=== PATIENT | female | born 1950 | race Caucasian/White ===

== ENCOUNTER → 2018-09-16 | Outpatient (CLI) | payer OTHER | LOC: CAT 07:42 | DX: Z13.6 Encounter for screening for cardiovascular disorders (principal); E78.00 Pure hypercholesterolemia, unspecified; I25.10 Atherosclerotic heart disease of native coronary artery without angina pectoris ==

== ENCOUNTER → 2018-10-03 | Outpatient (CLI) | payer OTHER ==
--- NOTE | 2018-10-03 10:31 | 2DMMODE ---
[facility] [place] [address] 2 D/M-MODE ECHOCARDIOGRAM Name: NOEMI KRISHNAN Room #: [facility]#: [id number] Admission: 10/03/18 Attend Phys: Oliverio Biswas MD Discharge: Date of : 46 Date of Service: 10/03/18 1031 Report #: [id number] THIS REPORT FOR: //name// APPROVED REPORT Study performed: 10/03/2018 09:40:17 EXAM: Comprehensive 2D, Doppler, and color-flow Echocardiogram Patient Location: Out-Patient Room #: Echo lab 1 Status: routine BSA: 1.65 HR: 77 bpm BP: 112/72 mmHg Rhythm: NSR Other Information Study Quality: Good Indications Dyspnea Hypertension/HDD 2D Dimensions RVDd: 30.67 mm IVSd: 10.01 (7-11mm) LVOT Diam: 18.38 (18-24mm) LVDd: 33.87 mm PWd: 10.20 (7-11mm) Ascending Ao: 25.90 (22-36mm) LVDs: 24.25 (25-40mm) Aortic Root: 29.30 mm IVC: 10.00 mm Volumes Left Atrial Volume (Systole) Single Plane 4CH: 45.66 mL Single Plane 2CH: 48.89 mL LA ESV Index: 33.00 mL/m2 Aortic Valve AoV Peak Judah.: 1.24 m/s AO Peak Gr.: 6.18 mmHg LVOT Max P.47 mmHg LVOT Max V: 1.17 m/s LUIS Vmax: 2.49 cm2 Mitral Valve E/A Ratio: 0.8 MV Decel. Time: 194.06 ms [facility] [place] [address] [place] [address] 2 D/M-MODE ECHOCARDIOGRAM Name: NOEMI KRISHNAN Room #: [facility]#: [id number] Admission: 10/03/18 Attend Phys: Oliverio Biswas MD Discharge: Date of : 46 Date of Service: 10/03/18 1031 Report #: [id number] MV E Max Judah.: 0.69 m/s MV A Judah.: 0.91 m/s MV PHT: 56.28 ms IVRT: 110.73 ms Pulmonary Valve PV Peak Judah.: 0.82 m/s PV Peak Gr.: 2.69 mmHg Pulmonary Vein P Vein S: 0.62 m/s P Vein A: 0.29 m/s P Vein D: 0.40 m/s P Vein A Dur.: 110.7 msec P Vein S/D Ratio: 1.55 Tricuspid Valve TR Peak Jduah.: 2.51 m/s TR Peak Gr.: 25.16 mmHg PA Pressure: 30.00 mmHg Left Ventricle The left ventricle is normal size. There is normal LV segmental wall motion. There is normal left ventricular wall thickness. The left ventricular systolic function is normal. The left ventricular ejection fraction is within the normal range. LVEF is 60-65%. Grade I - abnormal relaxation pattern. Right Ventricle The right ventricle is normal size. The right ventricular systolic function is normal. Atria Left atrium is at the upper limits of normal. The right atrium size is normal. Aortic Valve The aortic valve is normal in structure. No aortic regurgitation is present. There is no aortic valvular stenosis. Mitral Valve The mitral valve is normal in structure. Trace mitral regurgitation. No evidence of mitral valve stenosis. Tricuspid Valve The tricuspid valve is normal in structure. There is trace tricuspid regurgitation. Estimated PAP 30 mmHg. There is no pulmonary hypertension. [address] [address] 2 D/M-MODE ECHOCARDIOGRAM Name: EULOGIONOEMI Room #: [facility]#: [id number] Admission: 10/03/18 Attend Phys: Oliverio Biswas MD Discharge: Date of : 46 Date of Service: 10/03/18 1031 Report #: [id number] Pulmonic Valve The pulmonary valve is normal in structure. Trace pulmonic regurgitation. Great Vessels The aortic root is normal in size. IVC is normal in size and collapses >50% with inspiration. Pericardium Trace pericardial effusion. <Conclusion> The left ventricle is normal size. There is normal left ventricular wall thickness. The left ventricular systolic function is normal. Grade I - abnormal relaxation pattern. The right ventricle is normal size. Left atrium is at the upper limits of normal. The aortic valve is normal in structure. Trace mitral regurgitation. There is trace tricuspid regurgitation. Estimated PAP 30 mmHg. <ELECTRONICALLY SIGNED> By: Oliverio Biswas MD 10/03/18 1031 1031 1031 Oliverio Biswas MD /INF
== END ==
LOC: NUC 07:43 → ULTRA 15:52 → NUC 15:54
DX: I65.23 Occlusion and stenosis of bilateral carotid arteries (principal); E78.5 Hyperlipidemia, unspecified; I10 Essential (primary) hypertension; I25.10 Atherosclerotic heart disease of native coronary artery without angina pectoris; Z79.899 Other long term (current) drug therapy